=== PATIENT | male | born 1990 | race African-American/Black ===

== ENCOUNTER 2018-07-26 11:10 | Emergency (ER) | payer SELFPAY ==
[~2018-07-26] VITALS: Ht 188 cm; Wt 80.0 kg
[2018-07-26 11:27] VITALS: BP 139/65; PULSE 80; RESP 20; Ht 188 cm; Wt 80.0 kg
[2018-07-26] MEDS ORDERED: KETOROLAC 60 MG INJ IM STA (14:04)
[2018-07-26] MEDS ORDERED: IBUP800T48 PO (15:01)
[2018-07-26] MEDS ORDERED: TAMS-14 PO (15:01)
--- NOTE | 2018-07-26 19:24 | ERD ---
ER Documentation Chief Complaint Chief Complaint lower abdominal pain x 3 months getting worse HPI History of Present Illness: 28-year-old male with no past medical history coming in today with complaint of lower abdominal pain that is been present for 3 months but has been getting worse in the past 2 days. Patient reports pain to the right groin has been present for 3 months, unchanged. Patient reports that when he does certain activities that he will notice a protrusion to the right groin. Patient reports approximately 2 days ago he had left flank pain that been turned into left abdominal pain. Patient's reports that patient was hunched over and followed over in pain. Patient reports pain is still present but not as severe. Patient denies any other associated symptoms. At home pharmacological/nonpharmacological treatment for symptoms: Denies Denies social concerns; Denies recent foreign travel ROS All systems reviewed and are negative except as per history of present illness. Medications Home Meds Active Scripts Ibuprofen* (Motrin*) 800 Mg Tab, 800 MG PO Q6H PRN for PAIN AND OR ELEVATED TEMP, #30 TAB Prov:JUANITA YAP NP 07/26/18 Tamsulosin Hcl* (Flomax*) 0.4 Mg Cap.er.24h, 0.4 MG PO QPM for KIDNEY STONE, #7 CAP Prov:JUANITA YAP NP 07/26/18 Allergies Allergies: Coded Allergies: No Known Allergy (Unverified , 07/26/18) PMhx/Soc Medical and Surgical Hx: pt denies Medical Hx, pt denies Surgical Hx Hx Alcohol Use: Yes Hx Substance Use: Yes (marijuana) Hx Tobacco Use: Yes Smoking Status: Current every day smoker FmHx Family History: No diabetes, No coronary disease Physical Exam Vitals Vital Signs Date Temp Pulse Resp B/P (MAP) Pulse Ox O2 O2 Flow FiO2 Time Delivery Rate 07/26/18 98.1 80 20 139/65 99 11:27 (89) Physical Exam Const: No acute distress Head: Atraumatic Eyes: Normal Conjunctiva ENT: Normal External Ears, Nose and Mouth. Neck: Full range of motion. No meningismus. Resp: Clear to auscultation bilaterally Cardio: Regular rate and rhythm, no murmurs Abd: Soft, tenderness to left lower quadrant and suprapubic, non distended. Normal bowel sounds. Skin: No petechiae or rashes Back: No midline; positive left flank tenderness. Ext: No cyanosis, or edema Neur: Awake and alert Psych: Normal Mood and Affect Genitalia: Tenderness to palpation to right groin, no palpable hernia, normal looking genitalia Results 24 hrs Laboratory Tests Test 07/26/18 13:11 Urine Color YELLOW Urine Clarity CLEAR Urine pH 6.0 Urine Specific Dilliner 1.028 Urine Ketones NEGATIVE mg/dL Urine Nitrite NEGATIVE mg/dL Urine Bilirubin NEGATIVE mg/dL Urine Urobilinogen 1+ mg/dL Urine Leukocyte Esterase NEGATIVE Cedric/ul Urine Microscopic RBC 8 /HPF Urine Microscopic WBC 0 /HPF Urine Mucus FEW /HPF Urine Hemoglobin NEGATIVE mg/dL Urine Glucose NEGATIVE mg/dL Urine Total Protein NEGATIVE mg/dl Current Medications Medications Dose Sig/Gulshan Start Time Status Last (Trade) Ordered Route PRN Stop Time Admin Dose Reason Admin Ketorolac 60 mg ONCE STAT 07/26/18 DC 07/26/18 Tromethamine IM 14:04 07/26/18 14:25 (Toradol) 14:05 Procedures/MDM ED course includes a thorough examination and history. Medications: Imaging: Labs: Urinalysis ED course: Urinalysis positive for RBC, no infection. Due to patient's history and physical, will order KUB as well as ketorolac to rule out kidney stone. Low suspicion for life-threatening medical emergency. Low suspicion for strangulated hernia. Low suspicion for acute abdominal emergency that requires hospitalization or immediate surgical intervention. Low suspicion for pyelonephritis, urinalysis negative for infection. Otherwise healthy patient presenting with constellation of symptoms likely representing inguinal hernia and nephrolithiasis as characterized by history, physical exam findings, lab findings, radiology findings. Radiology report revealing: IMPRESSION: Unremarkable abdomen radiograph. .Rishi Mchugh MD, MD Patient reassessment: Patient denies pain after a ministration of ketorolac. Explained to patient that possible blood in urine could possibly due to passed kidney stone or non-radiopacity kidney stone. Patient agrees with plan of care. Return precautions given. Disposition given. No respiratory distress, otherwise relatively well appearing and nontoxic. Patient educated on diagnoses, prescriptions, follow-up care, return precautions. Strict return precautions given for worsening condition; questions answered discharge. Disposition for discharge with followup in 2 days with PCP/clinic; referral recommended for inguinal hernia evaluation. Departure Diagnosis: Primary Impression: Inguinal hernia of right side without obstruction or gangrene Additional Impressions: Left flank pain Abdominal pain Abdominal location: unspecified location Qualified Codes: R10.9 - Unspecified abdominal pain Condition: Stable Patient Instructions: Kidney Stones: Your Evaluation, Flank Pain, Uncertain Cause, Hernia (Inguinal, Ventral, Umbilical), Kidney Stone, Passed Referrals: [facility] YOU HAVE RECEIVED A MEDICAL SCREENING EXAM AND THE RESULTS INDICATE THAT YOU DO NOT HAVE A CONDITION THAT REQUIRES URGENT TREATMENT IN THE EMERGENCY DEPARTMENT. FURTHER EVALUATION AND TREATMENT OF YOUR CONDITION CAN WAIT UNTIL YOU ARE SEEN IN YOUR DOCTORS OFFICE WITHIN THE NEXT 1-2 DAYS. IT IS YOUR RESPONSIBILITY TO MAKE AN APPOINTMENT FOR FOLOW-UP CARE. IF YOU HAVE A PRIMARY DOCTOR --you should call your primary doctor and schedule an appointment IF YOU DO NOT HAVE A PRIMARY DOCTOR YOU CAN CALL OUR PHYSICIAN REFERRAL HOTLINE AT IF YOU CAN NOT AFFORD TO SEE A PHYSICIAN YOU CAN CHOSE FROM THE FOLLOWING [facility] [address] [facility]. [facility] [address] [facility] [address] [facility] [facility] [address] [facility] [facility] [address] [facility]. [facility]. [address] [facility] [facility] YOU HAVE RECEIVED A MEDICAL SCREENING EXAM AND THE RESULTS INDICATE THAT YOU DO NOT HAVE A CONDITION THAT REQUIRES URGENT TREATMENT IN THE EMERGENCY DEPARTMENT. FURTHER EVALUATION AND TREATMENT OF YOUR CONDITION CAN WAIT UNTIL YOU ARE SEEN IN YOUR DOCTORS OFFICE WITHIN THE NEXT 1-2 DAYS. IT IS YOUR RESPONSIBILITY TO MAKE AN APPOINTMENT FOR FOLOW-UP CARE. IF YOU HAVE A PRIMARY DOCTOR --you should call your primary doctor and schedule and appointment IF YOU DO NOT HAVE A PRIMARY DOCTOR YOU CAN CALL OUR PHYSICIAN REFERRAL HOTLINE AT . IF YOU CAN NOT AFFORD TO SEE A PHYSICIAN YOU CAN CHOSE FROM THE FOLLOWING [facility] INSTITUTIONS: [facility] [address] [place] [address] [facility] [address] [place] [address] [facility] [address] [place] [address] Additional Instructions: Thank you very much for allowing us to participate in your care. Your health and safety is our top priority at [facility]. It is important to read all discharge instructions and education provided in your discharge packet. Call your primary care doctor TOMORROW for an appointment during the next 2-4 days and bring all the information and medications prescribed. Have prescriptions filled and follow precisely the directions on the label. If the symptoms get worse and your provider is unavailable, return to the Emergency Department immediately. JUANITA YAP NP July 26, 2018 19:24
== END 2018-07-26 15:13 | disposition home or self-care (01) ==
LOC: FTE 11:10
DX: K40.90 Unilateral inguinal hernia, without obstruction or gangrene, not specified as recurrent (principal); F17.210 Nicotine dependence, cigarettes, uncomplicated
CPT/HCPCS: 74019; 81003; 96372; 99284; J1885